=== PATIENT | female | born 1960 | race Two or more races ===

== ENCOUNTER 2020-10-07 | Outpatient (CLI) | payer OTHER | END 2020-10-07 11:11 | disposition home or self-care (01) | LOC: PPH VACUNA | DX: Z23 Encounter for immunization (principal) ==

== ENCOUNTER 2021-07-06 08:54 | Outpatient (CLI) | payer OTHER | END 2021-07-06 09:54 | disposition home or self-care (01) | LOC: PPH VACUNA 08:54 | PROVIDERS: ATTEND Emergency Medicine Pediatric Emergency Medicine | DX: Z23 Encounter for immunization (principal) ==

== ENCOUNTER 2022-09-09 07:24 | Outpatient (CLI) | payer OTHER ==
[~2022-09-09 07:24] MED LIST: GLUMETZA500 MG PO; KAPSPARGO SPRIN25 MG PO; LOTREL 10-20 M1 EACH PO; STEGLATRO15 MG PO; VITAMIN D PO; [UNRECOGNIZED DRUG - CODE] PO
== END 2022-09-09 08:00 | disposition home or self-care (01) ==
LOC: MRI 07:24
PROVIDERS: ATTEND Specialist
DX: K80.10 Calculus of gallbladder with chronic cholecystitis without obstruction (principal)
CPT/HCPCS: 74181

== ENCOUNTER 2022-09-13 05:13 | Day surgery (SDC) | payer OTHER | END 2022-09-13 11:00 | disposition home or self-care (01) | LOC: CIR.AMB 05:13 | PROVIDERS: ATTEND Specialist | DX: K80.10 Calculus of gallbladder with chronic cholecystitis without obstruction (principal); E11.9 Type 2 diabetes mellitus without complications; Z79.84 Long term (current) use of oral hypoglycemic drugs; I10 Essential (primary) hypertension; Z20.822 Contact with and (suspected) exposure to COVID-19; Z86.16 Personal history of COVID-19 ==

== ENCOUNTER 2023-06-08 14:22 | Outpatient (CLI) | payer OTHER | END 2023-06-08 14:27 | disposition home or self-care (01) | LOC: RAD 14:22 | PROVIDERS: ATTEND Internal Medicine Rheumatology | DX: M65.872 Other synovitis and tenosynovitis, left ankle and foot (principal); M77.32 Calcaneal spur, left foot; M76.62 Achilles tendinitis, left leg ==